=== PATIENT | female | born 1975 | race Caucasian/White ===

== ENCOUNTER 2018-10-23 11:21 | Emergency (ER) | payer OTHER ==
[2018-10-23 11:39] VITALS: BP 105/51
--- NOTE | 2018-10-23 11:49 | EDPHY ---
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 She has small puncture wounds just to the radial and ulnar aspect of her right index finger not involving the finger nail. She does not think that it is broken. She has come here for a antibiotic prescription. Bleeding is controlled. No other injuries. Her tetanus is up-to -date. She also has been vaccinated for rabies and the dog is up-to-date on its vaccinations. She washed her wound out with chlorhexidine. Severity: Mild Modifying factors: None REVIEW OF SYSTEMS: Constitutional: denies: chills, fever, recent illness, recent injury EENTM: denies: blurred vision, double vision, nose congestion Respiratory: denies: cough, shortness of breath Cardiac: denies: chest pain, irregular heart rate, lightheadedness, palpitations Gastrointestinal/Abdominal: denies: abdominal pain, diarrhea, nausea, vomiting, blood streaked stools Genitourinary: denies: dysuria, frequency, hematuria, pain Musculoskeletal: denies: joint pain, muscle pain Skin: See HPI Neurological: denies: headache, numbness, paresthesia, tingling, dizziness, weakness Hematologic/Lymphatic: denies: blood clots, easy bleeding, easy bruising Immunologic/allergic: denies: HIV/AIDS, transplant 10 systems reviewed and negative except as noted EXAM: GENERAL: Well-appearing, well-nourished and in no acute distress. HEAD: Atraumatic, normocephalic. EYES: Pupils equal round and reactive to light, extraocular movements intact, sclera anicteric, conjunctiva are normal. ENT: TMs normal, nares patent, oropharynx clear without exudates. Moist mucous membranes. NECK: Normal range of motion, supple without lymphadenopathy or JVD. LUNGS: Breath sounds clear to auscultation bilaterally and equal. No wheezes rales or rhonchi. HEART: Regular rate and rhythm without murmurs, rubs or gallops. ABDOMEN: Soft, nontender, normoactive bowel sounds. No guarding, no rebound. No masses appreciated. BACK: No CVA tenderness, no spinal tenderness, step-offs or deformities EXTREMITIES: Normal range of motion, no pitting or edema. No clubbing or cyanosis. NEUROLOGICAL: Cranial nerves II through XII grossly intact. Normal speech, normal gait. 5/5 strength, normal movement in all extremities, normal sensation , normal reflexes PSYCH: Normal mood, normal affect. SKIN: 2 small puncture wounds to the radial and ulnar aspect of the right index finger distal to the DIP joint. Not involving the finger nail or nail bed. No obvious deformity. Bleeding controlled. Source: Patient Exam Limitations: No limitations - Personal History LMP (Females 10-55): 1-7 Days Ago Current Tetanus Diphtheria and Acellular Pertussis (TDAP): Yes Tetanus Vaccine Date: within 10 yrs - Medical/Surgical History Hx Asthma: No Hx Chronic Respiratory Disease: No Hx Diabetes: No Hx Cardiac Disease: No Hx Renal Disease: No Hx Cirrhosis: No Hx Alcoholism: No Other PMH: chronic nausea, benign PVCs, colorectal surg x7 - Family History Significant Family History: No pertinent family hx - Social History Smoking Status: Former smoker Alcohol Use: None Constitutional: Initial Vital Signs Temperature (C) 37.1 C 10/23/18 11:35 Heart Rate 65 10/23/18 11:35 Respiratory Rate 18 10/23/18 11:35 Blood Pressure 105/51 L 10/23/18 11:35 O2 Sat (%) 96 10/23/18 11:35 O2 Delivery Mode Room Air Allergies/Adverse Reactions: No Known Allergies Allergy (Unverified 10/23/18 11:34) Home Medications: Medication Instructions Recorded Amoxicillin/Clavulanate Pot 875 mg PO BID #14 tab 10/23/18 [Augmentin 875Mg] Lexapro 10/23/18 Zofran 10/23/18 Medical Decision Making ED Course/Re-evaluation: Patient declines imaging. Wound has been cleaned by her herself at work. Will also dress with sterile gauze and a began antibiotics as she requests. She states that this is her dominant hand and she is to do surgery tomorrow. Differential Diagnosis: Partial list of the Differential diagnosis considered include but were not limited to; puncture wound, foreign body, animal by and although unlikely based on the history and physical exam, I also considered tenosynovitis, vascular injury, nerve injury, fracture. I discussed these differential diagnoses and the plan with the patient as well as the usual and expected course. The patient understands that the diagnosis is provisional and that in medicine we are not always correct and that further workup is often warranted. Usual and customary warnings were given. All of the patient's questions were answered. The patient was instructed to return to the emergency department should the symptoms at all worsen or return, otherwise to followup with the physician as we discussed. Departure - Departure Disposition: Home, Routine, Self-Care Clinical Impression: Dog bite right index finger Condition: Fair Instructions: Animal Bite (ED) Referrals: Shaniqua Rivers [Primary Care Provider] - 2-3 days, if not improved Prescriptions: Amoxicillin/Clavulanate Pot [Augmentin 875Mg] 875 mg PO BID #14 tab
== END 2018-10-23 12:27 | disposition home or self-care (01) ==
LOC: CED 11:21
DX: S61.250A Open bite of right index finger without damage to nail, initial encounter (principal); W54.0XXA Bitten by dog, initial encounter; Y93.K9 Activity, other involving animal care; Y99.0 Civilian activity done for income or pay
CPT/HCPCS: 99283-ER